=== PATIENT | male | born 1995 | race Caucasian/White ===

== ENCOUNTER 2022-03-12 19:59 | Emergency (ER) | payer SELFPAY ==
[2022-03-12 20:00] VITALS: BP 124/65; PULSE 89; RESP 13; TEMP 36.6; O2SAT 98; BMI 25.2
--- NOTE | 2022-03-12 20:10 | CT_ITS ---
INDICATION: chest pain EXAMINATION: CT ABDOMEN AND PELVIS WITH CONTRAST - CT Chest Abdomen And Pelvis W/ Contrast Injection TECHNIQUE: Helically acquired images were obtained of the abdomen and pelvis following IV contrast. A radiation dose optimization technique was used for this scan. IV Contrast dosage and agent: 100 mL Isovue 300 Oral contrast: None. COMPARISON: None. FINDINGS: CT CHEST: LUNGS: [No parenchymal infiltrate consolidation or effusion. No pulmonary contusion.. No mass. No consolidation. PLEURAL SPACES: Unremarkable, no effusion or pneumothorax noted.. HEART: Unremarkable. No pericardial effusion. VASCULATURE: Unremarkable. No aortic aneurysm. MEDIASTINUM AND LYMPH NODES: Unremarkable. No significant adenopathy. CERVICAL THORACIC JUNCTION: There is normal appearance of the visualized airway. No masses or abnormal fluid collections. Visualized thyroid is within normal limits. CT ABDOMEN PELVIS: HEPATOBILIARY: Liver: The liver is homogeneous and shows no evidence of focal lesion. No evidence parenchymal laceration or hemorrhage. Gallbladder: The gallbladder is unremarkable. Pancreas: Pancreas is normal size configuration and density. No mass is noted. Spleen: The spleen is homogeneous and normal in size. . No parenchymal laceration or hemorrhage. BOWEL: 1. Stomach: The stomach is normal in size configuration, no evidence of focal masses, abnormal calcifications. No hiatal hernia noted. 2. Bowel: Small and large have normal configuration, no masses or bowel obstruction noted. 3. Appendix: Normal: GENITOURINARY: Adrenals: Both adrenal glands are normal in size. Kidneys: Kidneys appear symmetric in size. No calcifications are seen in the collecting system. There is no hydronephrosis or surrounding fluid. Bladder: Normal Pelvic organs: The visualized pelvic organs are normal in size and configuration. No masses or adenopathy noted. RETROPERITONEUM: There is normal appearance of the abdominal aorta and inferior vena cava. No evidence of retroperitoneal or para-aortic masses fluid collections or adenopathy. ANTERIOR ABDOMINAL WALL: Normal, no hernia identified. CHEST ABDOMEN PELVIS - BONES AND BODY WALL SOFT TISSUES: 1. No fractures identified involving the visualized shoulders including the clavicles bilaterally. 2. Transverse fracture involving the lamina and facets of C7 on the RIGHT and pedicle on the LEFT. No subluxation or canal stenosis. 3. No rib fractures identified. 4. Normal appearance of the sternum. No fracture noted. 5. Subtle fracture involving the anterior lip of T10 and to lesser extent T11. No significant loss of vertebral body height. No retropulsion. No canal stenosis. 6. Remaining thoracic spine shows no evidence of fracture. 7. No fractures identified involving the lumbar spine, sacrum, sacroiliac joints, pelvic ring or hips. OTHER: None CT/CT Chest, Abd, Pel w/Contrast IMPRESSION: 1. No parenchymal infiltrate consolidation or pulmonary contusion. 2. No evidence of acute traumatic injury to the great vessels of the chest. 3. No evidence of acute traumatic injury to the solid organs of the abdomen and pelvis including the liver, pancreas, spleen, or kidneys. 4. No masses or bowel obstruction. No evidence of obstructive uropathy. 5. No evidence of retroperitoneal or intraperitoneal hemorrhage or hematoma. 6. Redemonstration of fractures involving the RIGHT facets and adjacent lamina of C7, and additional fracture extending along the LEFT pedicle of C7. 7. Subtle superior endplate compression deformities involving the anterior lip the superior endplates at T10 and T11. No subluxation or canal stenosis. 8. No other fractures noted in the chest, abdomen or pelvis. Electronically Signed: Kelvin Marroquin MD at 22:01 EDT ,
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
[2022-03-12 20:39] LABS: Absolute Lymphocyte Count 5.99 X10^3/uL (0.83-4.51); Absolute Neutrophil Count 7.5 X10^3/uL (2.0-7.7); Basophil# 0.09 X10^3/uL; Basophil% 0.6 % (0-1); Eosinophils% 1.3 % (0-5); Hematocrit 44.4 % (40-54); Lymphocyte # 5.99 X10^3/ul (0.83-4.51); Lymphocyte % 39.9 % (19-41); Mean Corp Hgb Conc 33.8 g/dL (32-36); Mean Corpuscular Hgb 29.7 pg (27.0-32.0); Mean Corpuscular Volume 87.9 fL (80-94); Mean Platelet Vol. 10.7 fl (6.2-12.0); Monocyte# 0.92 X10^3/uL; Monocyte% 6.1 % (0-10); NRBC Flagged by Analyzer 0 % (0-5); Neutrophil # 7.52 X10^3/uL (2.7-7.7); Neutrophil % 50.1 % (47-70); POSITIVE DIFFERENTIAL YES; POSITIVE MORPHOLOGY YES; Platelet Count 307 K/mm3 (150-450); RBC Distribution Width CV 13.1 % (11.6-14.6); RBC Distribution Width SD 42.5 fl (35.1-43.9); Red Blood Count 5.05 M/mm3 (4.6-6.2)
[2022-03-12 20:41] LABS: Differential Indicated SCAN CRITERIA MET
[2022-03-12 20:43] LABS: International Normalized Ratio 1.1; Prothrombin Time (Protime)PT. 13.6 SECONDS (11.7-14.9)
--- NOTE | 2022-03-12 20:44 | NURSING ---
pt refused pain medication and zofran
[2022-03-12] MEDS: 0.9% Normal Saline 1,000 ML 999 ML IV (20:45)
[2022-03-12 20:47] VITALS: BP 136/86; PULSE 87; RESP 20; O2SAT 99
--- NOTE | 2022-03-12 21:00 | ED.RN ---
PT AND MOTHER EDUCATED SEVERAL TIMES ON NEED TO KEEP C COLLAR IN PLACE UNTIL IMAGING RESULTS BACK. PT VOICES UNDERSTANDING, CONTINUES TO DECLINE PAIN MEDS.
[2022-03-12 21:04] LABS: Atypical Lymphocyte 1+ %
[2022-03-12 21:08] LABS: Anion Gap 7 (5-15); BUN 8 mg/dL (7-18); BUN/Creat Ratio 9.2 RATIO (10-20); Calcium,Total 8.2 mg/dL (8.5-10.1); Chloride 105 mmol/L (98-107); Creatinine, Serum 0.87 mg/dL (0.70-1.30); EST Glomerular Filtration Rate 113 mL/min (>60); Est Glom Filt Rate - Afr Amer 136 mL/min (>60); Glucose 101 mg/dL (74-106); Potassium 3.3 mmol/L (3.5-5.1); Sodium Level 139 mmol/L (136-145); Troponin-I HS < 3 pg/mL (3.0-78.0)
[2022-03-12 21:34] VITALS: BP 143/84; PULSE 88; RESP 18; O2SAT 99
--- NOTE | 2022-03-12 22:09 | NURSING ---
CALLED PHYSICIANS AT [phone] ETA 20-30 MIN
[2022-03-12 22:10] VITALS: BP 134/73; PULSE 96; RESP 15; O2SAT 99
--- NOTE | 2022-03-12 22:30 | NURSING ---
PHYSICIANS ARRIVED [id number]
[2022-03-12 22:40] VITALS: BP 134/73; PULSE 96; RESP 15; O2SAT 99
== END 2022-03-12 22:42 | disposition short-term general hospital (02) ==
PROVIDERS: Emergency Provider Student in an Organized Health Care Education/Training Program; PCP Nurse Practitioner Family; Visit Provider Student in an Organized Health Care Education/Training Program
DX: S12.600A Unspecified displaced fracture of seventh cervical vertebra, initial encounter for closed fracture (principal); F10.129 Alcohol abuse with intoxication, unspecified; S00.81XA Abrasion of other part of head, initial encounter; V86.05XA Driver of 3- or 4- wheeled all-terrain vehicle (ATV) injured in traffic accident, initial encounter; M43.8X4 Other specified deforming dorsopathies, thoracic region; R07.89 Other chest pain; R10.13 Epigastric pain; F17.210 Nicotine dependence, cigarettes, uncomplicated; Y90.9 Presence of alcohol in blood, level not specified
CPT/HCPCS: 70450; 71260; 72125; 74177; 80048; 82077; 84484; 85025; 85610; 93005; 96360; 96361; 99285; J7030; Q9967; A4216; J2405